=== PATIENT | male | born 1940 | race Two or more races ===

== ENCOUNTER 2017-10-22 14:50 | Outpatient (CLI) | payer MEDICARE ==
--- NOTE | 2017-10-22 16:09 | Diagnostic Imaging Report ---
Indication: Cough Technique: One view of the chest Comparison: none Findings: No acute infiltrates, effusions, or congestion. Normal heart size. Mild thoracic scoliotic deformity Impression: No acute process
== END 2017-10-22 16:50 | disposition home or self-care (01) ==
LOC: RAD 14:50
DX: R05 Cough (principal)
CPT/HCPCS: 71046